=== PATIENT | female | born 1945 | race Caucasian/White ===

== ENCOUNTER 2021-04-16 18:14 | Emergency (ER) | payer OTHER ==
[2021-04-16 18:31] VITALS: BP 116/78; PULSE 79; TEMP 98; BMI 38.9
[2021-04-16] MEDS ORDERED: DIPHTH,PERTUSS(ACELL),TET 0.5 ML DISP.SYRIN IM ONE ×2 (18:51→18:54)
== END 2021-04-16 18:57 | disposition home or self-care (01) ==
LOC: JERFT 18:14
PROC: 3E0234Z Introduction of Serum, Toxoid and Vaccine into Muscle, Percutaneous Approach (ICD-10-PCS; principal; 2021-04-16)
DX: S91.115A Laceration without foreign body of left lesser toe(s) without damage to nail, initial encounter (principal); W26.8XXA Contact with other sharp object(s), not elsewhere classified, initial encounter; Y93.E8 Activity, other personal hygiene
CPT/HCPCS: 90471; 90715; 99284-25

== ENCOUNTER 2022-04-14 10:14 | Inpatient (IN) | payer OTHER ==
[2022-04-14 12:48] LABS: BASO % 0.5 % (0-2.0); EOS % 6.3 % (0-4.5); HEMATOCRIT 39.2 % (32.4-45.2); HEMOGLOBIN 13.2 GM/dL (10.7-15.3); LYMPH % 29.1 % (8-40); MCH 31.3 pg (25.7-33.7); MCHC 33.7 g/dl (32.0-36.0); MEAN CELL VOLUME 92.9 fl (80-96); MEAN PLT VOLUME 8.9 fl (7.5-11.1); MONO % 7.6 % (3.8-10.2); NEUT % 56.5 % (42.8-82.8); PLATELET COUNT 208 10^3/uL (134-434); RBC 4.22 M/mm3 (3.60-5.2); RDW 14.7 % (11.6-15.6)
[2022-04-14 12:56] LABS: INR 0.99 (0.83-1.09); PROTHROMBIN TIME (PATIENT) 11.4 SEC (9.7-13.0)
[2022-04-14 12:59] LABS: ACTIVATED PTT 29.7 SECONDS (25.2-36.5)
[2022-04-14 13:03] LABS: CALCIUM 9.5 mg/dL (8.5-10.1)
[2022-04-14 13:04] LABS: ALBUMIN 3.6 g/dl (3.4-5.0); BLOOD UREA NITROGEN 16.3 mg/dL (7-18)
[2022-04-14 13:07] LABS: CREATININE 1.1 mg/dL (0.55-1.3)
[2022-04-14 13:08] LABS: BILIRUBIN,TOTAL 0.5 mg/dL (0.2-1); TOT PROT 6.7 g/dl (6.4-8.2)
[2022-04-14 19:06] VITALS: BMI 41.2
[2022-04-15] MEDS: CARVEDILOL 12.5 MG TABLET (FP) PO SCH ×2 (10:07→21:23)
[2022-04-15 10:08] LABS: BASO % 0.4 % (0-2.0); HEMATOCRIT 40.4 % (32.4-45.2); HEMOGLOBIN 13.7 GM/dL (10.7-15.3); MCH 31.5 pg (25.7-33.7); MCHC 33.9 g/dl (32.0-36.0); MEAN CELL VOLUME 92.9 fl (80-96); MEAN PLT VOLUME 9.4 fl (7.5-11.1); MONO % 7.2 % (3.8-10.2); NEUT % 56.4 % (42.8-82.8); PLATELET COUNT 212 10^3/uL (134-434); RBC 4.34 M/mm3 (3.60-5.2); RDW 15.1 % (11.6-15.6); WHITE BLOOD COUNT 5.4 K/mm3 (4.0-10.0)
[2022-04-15] MEDS: VENLAFAXINE HCL 75 MG E.R. CAPSULES PO SCH (21:23)
[2022-04-15] MEDS: ATORVASTATIN CA 10 MG TABLET (FP) PO SCH (21:23)
[2022-04-15] MEDS: GABAPENTIN 300 MG CAPSULE PO SCH (21:23)
[2022-04-16] MEDS: CARVEDILOL 12.5 MG TABLET (FP) PO SCH ×2 (09:12→23:17)
[2022-04-16 09:14] LABS: HEMATOCRIT 41.4 % (32.4-45.2); HEMOGLOBIN 13.9 GM/dL (10.7-15.3); MCH 31.4 pg (25.7-33.7); MCHC 33.6 g/dl (32.0-36.0); MEAN CELL VOLUME 93.2 fl (80-96); MEAN PLT VOLUME 9.4 fl (7.5-11.1); PLATELET COUNT 217 10^3/uL (134-434); RBC 4.44 M/mm3 (3.60-5.2); RDW 14.7 % (11.6-15.6); WHITE BLOOD COUNT 5.6 K/mm3 (4.0-10.0)
[2022-04-16 09:40] LABS: CHOLESTEROL 167 mg/dL (50-200); LDL CHOLESTEROL (ONLY SJRH) 92 mg/dL (5-100); TRIGLYCERIDES 116 mg/dL (0-150)
[2022-04-16 09:44] LABS: HDL CHOLESTEROL 58 mg/dL (40-60)
[2022-04-16] MEDS: GABAPENTIN 300 MG CAPSULE PO SCH (23:17)
[2022-04-16] MEDS: ATORVASTATIN CA 10 MG TABLET (FP) PO SCH (23:17)
[2022-04-16] MEDS: VENLAFAXINE HCL 75 MG E.R. CAPSULES PO SCH (23:17)
[2022-04-17] MEDS: CARVEDILOL 12.5 MG TABLET (FP) PO SCH ×2 (09:38→22:17)
[2022-04-17 11:47] LABS: HEMATOCRIT 41.8 % (32.4-45.2); HEMOGLOBIN 14.1 GM/dL (10.7-15.3); MCH 31.5 pg (25.7-33.7); MCHC 33.6 g/dl (32.0-36.0); MEAN CELL VOLUME 93.8 fl (80-96); MEAN PLT VOLUME 9.6 fl (7.5-11.1); PLATELET COUNT 224 10^3/uL (134-434); RBC 4.46 M/mm3 (3.60-5.2); RDW 15.1 % (11.6-15.6); WHITE BLOOD COUNT 5.7 K/mm3 (4.0-10.0)
[2022-04-17 12:24] LABS: CALCIUM 9.7 mg/dL (8.5-10.1)
[2022-04-17 12:25] LABS: BLOOD UREA NITROGEN 7.6 mg/dL (7-18)
[2022-04-17 12:28] LABS: CREATININE 0.8 mg/dL (0.55-1.3)
[2022-04-17] MEDS: GABAPENTIN 300 MG CAPSULE PO SCH (22:17)
[2022-04-17] MEDS: ATORVASTATIN CA 10 MG TABLET (FP) PO SCH (22:17)
[2022-04-17] MEDS: VENLAFAXINE HCL 75 MG E.R. CAPSULES PO SCH (22:17)
[2022-04-18] MEDS: CARVEDILOL 12.5 MG TABLET (FP) PO SCH ×2 (09:59→21:39)
[2022-04-18] MEDS: POLYETHYLENE GLYCOL (HEALTHYLAX) 3350 17 GM PACKET PO SCH ×2 (15:19→21:40)
[2022-04-18] MEDS: VENLAFAXINE HCL 75 MG E.R. CAPSULES PO SCH (21:40)
[2022-04-18] MEDS: GABAPENTIN 300 MG CAPSULE PO SCH (21:40)
[2022-04-18] MEDS: ATORVASTATIN CA 10 MG TABLET (FP) PO SCH (21:40)
[2022-04-19] MEDS: POLYETHYLENE GLYCOL (HEALTHYLAX) 3350 17 GM PACKET PO SCH ×3 (07:10→22:44)
[2022-04-19] MEDS: CARVEDILOL 12.5 MG TABLET (FP) PO SCH ×2 (09:58→22:39)
[2022-04-19] MEDS ORDERED: BISACODYL 5 MG TABLET.DR (FP) PO ONE (16:00)
[2022-04-19] MEDS ORDERED: PEG 3350/NA SULF BICARB CL/KCL 4000 ML SOLN.RECON PO ONE (17:00)
[2022-04-19] MEDS: GABAPENTIN 300 MG CAPSULE PO SCH (22:39)
[2022-04-19] MEDS: ATORVASTATIN CA 10 MG TABLET (FP) PO SCH (22:39)
[2022-04-19] MEDS: VENLAFAXINE HCL 75 MG E.R. CAPSULES PO SCH (22:39)
[2022-04-20] MEDS: POLYETHYLENE GLYCOL (HEALTHYLAX) 3350 17 GM PACKET PO SCH ×2 (05:44→14:05)
[2022-04-20] MEDS: CARVEDILOL 12.5 MG TABLET (FP) PO SCH (09:01)
[2022-04-20 13:00] LABS: BASO % 0.5 % (0-2.0); EOS % 2.6 % (0-4.5); HEMATOCRIT 37.4 % (32.4-45.2); LYMPH % 23.4 % (8-40); MCH 32.3 pg (25.7-33.7); MCHC 34.7 g/dl (32.0-36.0); MEAN CELL VOLUME 93.2 fl (80-96); MONO % 10.2 % (3.8-10.2); NEUT % 63.3 % (42.8-82.8); PLATELET COUNT 192 10^3/uL (134-434); RBC 4.01 M/mm3 (3.60-5.2); RDW 14.5 % (11.6-15.6); WHITE BLOOD COUNT 6.3 K/mm3 (4.0-10.0)
[2022-04-20 13:02] LABS: INR 1.06 (0.83-1.09); PROTHROMBIN TIME (PATIENT) 12.2 SEC (9.7-13.0)
[2022-04-20 13:25] LABS: CALCIUM 9.2 mg/dL (8.5-10.1)
[2022-04-20 13:26] LABS: BLOOD UREA NITROGEN 13.7 mg/dL (7-18); MAGNESIUM 1.9 mg/dL (1.8-2.4)
[2022-04-20 13:29] LABS: CREATININE 0.9 mg/dL (0.55-1.3); PHOSPHOROUS 3.4 mg/dL (2.5-4.9)
[2022-04-20 16:00] VITALS: BP 125/64; PULSE 88; RESP 18; TEMP 98
== END 2022-04-20 17:08 | disposition home or self-care (01) | DRG 394 ==
LOC: JER 10:14 → JERBED 13:10 → J8W 19:05
PROVIDERS: ADMIT Family Medicine; ATTEND Family Medicine
PROC: 0DJD8ZZ Inspection of Lower Intestinal Tract, Via Natural or Artificial Opening Endoscopic (ICD-10-PCS; principal; 2022-04-20 12:45)
DX: K64.0 First degree hemorrhoids (principal); K62.5 Hemorrhage of anus and rectum; I25.10 Atherosclerotic heart disease of native coronary artery without angina pectoris; F32.A Depression, unspecified; I10 Essential (primary) hypertension; K57.30 Diverticulosis of large intestine without perforation or abscess without bleeding
CPT/HCPCS: 36415; 71045-TC-FY; 80048; 80053; 80061; 82272; 82962; 83735; 84100; 85025; 85027; 85610; 85730; 86850; 86900; 86901; 93005; 93010; 93306-TC; 99285-25; C9803-CS; U0003; U0005

== ENCOUNTER 2022-10-05 20:36 | Inpatient (IN) | payer OTHER ==
[2022-10-05] MEDS ORDERED: MAGNESIUM SULFATE IN WATER 2 GM/50 ML IVPB IVPB ONE (20:39)
[2022-10-05] MEDS ORDERED: RACEPINEPHRINE IH SOL 2.25% 11.25 MG/0.5 ML VIAL NEB ONE (20:39)
[2022-10-05] MEDS ORDERED: NITROGLYCERIN SUBLINGUAL 1/150 0.4 MG TAB SL ONE ×2 (20:40→20:50)
[2022-10-05] MEDS ORDERED: ASPIRIN 81 MG CHEWABLE TABLETS PO ONE (20:45)
[2022-10-05] MEDS ORDERED: fentaNYL CITRATE 250 MCG/5 ML VIAL ONE (20:48)
[2022-10-05] MEDS ORDERED: MIDAZOLAM IN 0.9 % SOD.CHLORID 1 MG/1 ML PLAST..BAG ONE (20:48)
[2022-10-05 20:51] LABS: VENOUS BASE EXCESS -5.2 mmol/L (-2-2); VENOUS O2 SATURATION 82.4 % (70-80)
[2022-10-05 21:00] LABS: VENOUS PH 7.003 (7.310-7.410)
[2022-10-05 21:01] LABS: VENOUS PCO2 124.6 mmHg (38-52)
[2022-10-05] MEDS ORDERED: DEXAMETHASONE SOD PHOSPHATE 10 MG/1 ML VIAL IVPUSH ONE (21:05)
[2022-10-05 21:11] LABS: CALCIUM 9.5 mg/dL (8.5-10.1)
[2022-10-05 21:13] LABS: BLOOD UREA NITROGEN 15.5 mg/dL (7-18)
[2022-10-05 21:15] LABS: CREATININE 1.1 mg/dL (0.55-1.3)
[2022-10-05 21:18] LABS: TOT PROT 7.7 g/dl (6.4-8.2)
[2022-10-05] MEDS ORDERED: MAGNESIUM SULF 50% (8.12 MEQ/2 ML-1 GM VIAL) IVPB ONE (21:27)
[2022-10-05] MEDS ORDERED: ETOMIDATE 40 MG/20 ML VIAL IVPUSH ONE (21:27)
[2022-10-05] MEDS ORDERED: RACEPINEPHRINE IH SOL 2.25% 11.25 MG/0.5 ML VIAL IH ONE (21:27)
[2022-10-05] MEDS ORDERED: ROCURONIUM BROMIDE 50 MG/5 ML VIAL IV ONE (21:27)
[2022-10-05] MEDS: FENTANYL NS IVPB 500 MCG/100 ML BAG IVPB SCH (21:30)
[2022-10-05] MEDS: ALBUTEROL SO4 2.5/IPRATROPIUM 0.5 INH SOL 3 ML VIAL.NEB. NEB SCH ×2 (21:30→21:31)
[2022-10-05] MEDS ORDERED: MIDAZOLAM 100 MG in SODIUM CHLORIDE 100 ML IVPB SCH (21:30)
[2022-10-05 21:41] LABS: ARTERIAL BLD GAS O2 SATURATION 99.3 % (95-98); ARTERIAL BLOOD GAS BASE EXCESS -5.1 mmol/L (-2-2); ARTERIAL BLOOD GAS PO2 246.6 mmHg (80-100)
[2022-10-05 21:44] LABS: ALLENS TEST POSITIVE
[2022-10-05 21:50] LABS: VENT MODE A/C; VENT RATE 16
[2022-10-05 21:53] LABS: ARTERIAL BLOOD GAS pH 7.156 (7.350-7.450)
[2022-10-05] MEDS ORDERED: SODIUM CHLORIDE 0.9% 500 ML INFUS.BAG IV ONE (22:03)
[2022-10-05] MEDS ORDERED: ROCURONIUM BROMIDE 50 MG/5 ML VIAL IVPUSH ONE (22:04)
[2022-10-05] MEDS ORDERED: ROCURONIUM BROMIDE 50 MG/5 ML SYRINGE ONE (22:11)
[2022-10-05] MEDS ORDERED: DOXYCYCLINE INJECTION 100 MG in DEXTROSE 5%-WATER 100 ML IVPB ONE (22:36)
[2022-10-05] MEDS ORDERED: ACETAMINOPHEN 325 MG TABLET (FP) NR PRN (22:39)
[2022-10-05] MEDS ORDERED: MUPIROCIN 2% TOPICAL OINTMENT FOR DECOLONIZATION NS SCH (22:45)
[2022-10-05] MEDS ORDERED: ALBUTEROL SO4 0.083% IH SOL 2.5 MG/3 ML VIAL.NEB. NEB PRN (22:58)
[2022-10-05] MEDS ORDERED: ACETAMINOPHEN 650 MG/20.3 ML ORAL SOLUTION (CUPS) GT PRN (23:07)
[2022-10-05] MEDS ORDERED: DOXYCYCLINE HYCLATE 100 MG VIAL ONE (23:19)
[2022-10-05] MEDS ORDERED: NOREPINEPHRINE BITARTRATE/D5W 8 MG/250 ML BAG IVPB ONE (23:21)
[2022-10-05] MEDS ORDERED: ATORVASTATIN CA 40 MG TABLET (FP) ONE (23:22)
[2022-10-05] MEDS ORDERED: CEFTRIAXONE 1 GM/50 ML BAG ONE (23:22)
[2022-10-05] MEDS: CEFTRIAXONE 1 GM in DEXTROSE 5%-WATER - 50 ML IVPB SCH (23:25)
[2022-10-05 23:36] LABS: BASO % 0.3 % (0-2.0); EOS % 1.2 % (0-4.5); HEMATOCRIT 39.1 % (32.4-45.2); HEMOGLOBIN 12.7 GM/dL (10.7-15.3); LYMPH % 8.1 % (8-40); MCH 30.5 pg (25.7-33.7); MCHC 32.5 g/dl (32.0-36.0); MEAN CELL VOLUME 94.1 fl (80-96); MEAN PLT VOLUME 9.2 fl (7.5-11.1); NEUT % 87.4 % (42.8-82.8); PLATELET COUNT 189 10^3/uL (134-434); RBC 4.16 M/mm3 (3.60-5.2); RDW 15.4 % (11.6-15.6); WHITE BLOOD COUNT 9.8 K/mm3 (4.0-10.0)
[2022-10-05 23:37] LABS: INR 1.1 (0.83-1.09); PROTHROMBIN TIME (PATIENT) 12.7 SEC (9.7-13.0)
[2022-10-05 23:39] LABS: EPI CELLS >36 /uL (0-25.1); HYALINE CASTS 22 /uL (0-3.1); URINE APPEARANCE CLOUDY; URINE BACTERIA 56 /uL (0-1359); URINE BILIRUBIN NEGATIVE (NEGATIVE); URINE COLOR YELLOW; URINE GLUCOSE (UA) NEGATIVE (NEGATIVE); URINE KETONE 2+ (NEGATIVE); URINE LEUK ESTERASE NEGATIVE (NEGATIVE); URINE NITRITE NEGATIVE (NEGATIVE); URINE PROTEIN 3+ (NEGATIVE); URINE RBC 45 /uL (0-23.9)
[2022-10-05 23:40] LABS: ACTIVATED PTT 30.3 SECONDS (25.2-36.5)
[2022-10-05 23:49] LABS: CALCIUM 8.8 mg/dL (8.5-10.1)
[2022-10-05 23:50] LABS: ALBUMIN 3.2 g/dl (3.4-5.0); BLOOD UREA NITROGEN 16.1 mg/dL (7-18); MAGNESIUM 2.3 mg/dL (1.8-2.4)
[2022-10-05 23:54] LABS: BILIRUBIN,TOTAL 0.7 mg/dL (0.2-1); CREATININE 0.9 mg/dL (0.55-1.3); TOT PROT 6.3 g/dl (6.4-8.2)
[2022-10-05 23:55] LABS: N-TERMINAL BNP 1559.9 pg/ml (5-450)
[2022-10-06] MEDS: NOREPINEPHRINE 0.9 % NACL 8 MG/250 ML BAG IVPB SCH (00:31)
[2022-10-06] MEDS ORDERED: NOREPINEPHRINE BITARTRATE 4 MG/4 ML ML IV ONE (02:26)
[2022-10-06] MEDS ORDERED: NOREPINEPHRINE BITARTRATE/D5W 8 MG/250 ML BAG IVPB SCH (02:30)
[2022-10-06] MEDS: MUPIROCIN 2% TOPICAL OINTMENT FOR DECOLONIZATION NS SCH ×3 (02:42→21:36)
[2022-10-06] MEDS: NOREPINEPHRINE BITARTRATE 16,000 MCG in SODIUM CHLORIDE 484 ML IV SCH (03:20)
[2022-10-06] MEDS ORDERED: FUROSEMIDE 40 MG/4 ML INJECTABLE VIAL IVPUSH ONE (03:38)
[2022-10-06 04:21] LABS: ARTERIAL BLD GAS O2 SATURATION 96.6 % (95-98); ARTERIAL BLOOD GAS BASE EXCESS -0.9 mmol/L (-2-2); ARTERIAL BLOOD GAS PO2 88.3 mmHg (80-100); ARTERIAL BLOOD GAS pH 7.383 (7.350-7.450)
[2022-10-06 04:28] LABS: ALLENS TEST POSITIVE
[2022-10-06 04:29] LABS: VENT MODE A/C; VENT RATE 18
[2022-10-06 07:23] LABS: BASO % 0.1 % (0-2.0); HEMATOCRIT 41.5 % (32.4-45.2); HEMOGLOBIN 13.7 GM/dL (10.7-15.3); LYMPH % 8.5 % (8-40); MCH 30.9 pg (25.7-33.7); MCHC 33.1 g/dl (32.0-36.0); MEAN CELL VOLUME 93.6 fl (80-96); MEAN PLT VOLUME 9.1 fl (7.5-11.1); MONO % 1.9 % (3.8-10.2); NEUT % 89.5 % (42.8-82.8); PLATELET COUNT 227 10^3/uL (134-434); RBC 4.43 M/mm3 (3.60-5.2); RDW 14.9 % (11.6-15.6); WHITE BLOOD COUNT 8.9 K/mm3 (4.0-10.0)
[2022-10-06 07:30] LABS: INR 1.02 (0.83-1.09); PROTHROMBIN TIME (PATIENT) 11.7 SEC (9.7-13.0)
[2022-10-06 07:32] LABS: ACTIVATED PTT 30.2 SECONDS (25.2-36.5)
[2022-10-06 07:38] LABS: CHLORIDE 101 mmol/L (98-107); SODIUM 140 mmol/L (136-145)
[2022-10-06 07:40] LABS: ALBUMIN 3.4 g/dl (3.4-5.0); ANION GAP 12 MMOL/L (8-16); BLOOD UREA NITROGEN 16.6 mg/dL (7-18); CALCIUM 9.2 mg/dL (8.5-10.1); CO2 27 mmol/L (21-32); GLUCOSE,RANDOM 149 mg/dL (74-106)
[2022-10-06 07:42] LABS: CREATININE 0.9 mg/dL (0.55-1.3); PHOSPHOROUS 2.9 mg/dL (2.5-4.9); SGOT/AST 25 U/L (15-37); SGPT/ALT 26 U/L (13-61)
[2022-10-06 07:45] LABS: BILIRUBIN,TOTAL 0.6 mg/dL (0.2-1); TOT PROT 6.9 g/dl (6.4-8.2)
[2022-10-06 07:46] LABS: ALK PHOS 80 U/L (45-117)
[2022-10-06] MEDS: FENTANYL NS IVPB 500 MCG/100 ML BAG IVPB SCH (09:53)
[2022-10-06] MEDS: CEFTRIAXONE 1 GM in DEXTROSE 5%-WATER - 50 ML IVPB SCH (09:57)
[2022-10-06] MEDS: AZITHROMYCIN IVPB 500 MG/250 ML BAG IVPB SCH (09:57)
[2022-10-06] MEDS: PANTOPRAZOLE SODIUM 40 MG VIAL IVPUSH SCH (09:57)
[2022-10-06] MEDS: ASPIRIN 81 MG CHEWABLE TABLETS GT SCH (09:59)
[2022-10-06] MEDS: ENOXAPARIN NA (PORCINE) 40 MG/0.4 ML DISP.SYRIN SQ SCH (10:00)
[2022-10-06] MEDS: POLYETHYLENE GLYCOL (HEALTHYLAX) 3350 17 GM PACKET GT SCH ×2 (10:00→21:38)
[2022-10-06] MEDS ORDERED: CEFTRIAXONE 1 GM in DEXTROSE 5%-WATER - 50 ML IVPB SCH (10:00)
[2022-10-06] MEDS: IPRATROPIUM BR 0.02% 0.5 MG/2.5 ML VIAL.NEB. NEB PRN (20:36)
[2022-10-06] MEDS: ATORVASTATIN CA 40 MG TABLET (FP) NGT SCH (21:38)
[2022-10-06] MEDS ORDERED: CHLORHEXIDINE GLUCONATE 4% CLEANSER FOR DECOLONIZATION TP SCH ×2 (22:00)
[2022-10-07] MEDS: PANTOPRAZOLE SODIUM 40 MG VIAL IVPUSH SCH (09:17)
[2022-10-07] MEDS: POLYETHYLENE GLYCOL (HEALTHYLAX) 3350 17 GM PACKET GT SCH ×2 (09:17→21:31)
[2022-10-07] MEDS: ENOXAPARIN NA (PORCINE) 40 MG/0.4 ML DISP.SYRIN SQ SCH (09:17)
[2022-10-07] MEDS: CEFTRIAXONE 1 GM in DEXTROSE 5%-WATER - 50 ML IVPB SCH (09:18)
[2022-10-07] MEDS: ASPIRIN 81 MG CHEWABLE TABLETS GT SCH (09:18)
[2022-10-07] MEDS: NOREPINEPHRINE BITARTRATE 16,000 MCG in SODIUM CHLORIDE 484 ML IV SCH (09:19)
[2022-10-07] MEDS: AZITHROMYCIN IVPB 500 MG/250 ML BAG IVPB SCH (09:21)
[2022-10-07] MEDS: MUPIROCIN 2% TOPICAL OINTMENT FOR DECOLONIZATION NS SCH (09:21)
[2022-10-07] MEDS: NOREPINEPHRINE 0.9 % NACL 8 MG/250 ML BAG IVPB SCH (09:21)
[2022-10-07] MEDS: IPRATROPIUM BR 0.02% 0.5 MG/2.5 ML VIAL.NEB. NEB PRN (21:18)
[2022-10-07] MEDS: ATORVASTATIN CA 40 MG TABLET (FP) NGT SCH (21:31)
[2022-10-08] MEDS: NOREPINEPHRINE BITARTRATE 16,000 MCG in SODIUM CHLORIDE 484 ML IV SCH (07:13)
[2022-10-08 08:07] LABS: BLOOD UREA NITROGEN 23.9 mg/dL (7-18); CALCIUM 9.3 mg/dL (8.5-10.1); MAGNESIUM 2.2 mg/dL (1.8-2.4)
[2022-10-08 08:10] LABS: CREATININE 0.8 mg/dL (0.55-1.3)
[2022-10-08 08:11] LABS: PHOSPHOROUS 2.6 mg/dL (2.5-4.9)
[2022-10-08 08:15] LABS: N-TERMINAL BNP 337.4 pg/ml (5-450)
[2022-10-08] MEDS: CEFTRIAXONE 1 GM in DEXTROSE 5%-WATER - 50 ML IVPB SCH (09:06)
[2022-10-08] MEDS: AZITHROMYCIN IVPB 500 MG/250 ML BAG IVPB SCH (09:07)
[2022-10-08] MEDS: ENOXAPARIN NA (PORCINE) 40 MG/0.4 ML DISP.SYRIN SQ SCH (09:07)
[2022-10-08] MEDS: ASPIRIN 81 MG CHEWABLE TABLETS GT SCH (09:07)
[2022-10-08] MEDS: POLYETHYLENE GLYCOL (HEALTHYLAX) 3350 17 GM PACKET GT SCH (09:08)
[2022-10-08] MEDS ORDERED: PANTOPRAZOLE SODIUM 40 MG VIAL IVPUSH SCH (10:00)
[2022-10-08] MEDS ORDERED: ACETAMINOPHEN 650 MG/20.3 ML ORAL SOLUTION (CUPS) PO PRN (11:44)
[2022-10-08] MEDS ORDERED: ASPIRIN 81 MG CHEWABLE TABLETS PO SCH (11:48)
[2022-10-08] MEDS: LACTOBACILLUS ACIDOPHILUS 1 TABLET PO SCH (13:10)
[2022-10-08] MEDS: VENLAFAXINE HCL 75 MG E.R. CAPSULES PO SCH (13:10)
[2022-10-08] MEDS ORDERED: METOPROLOL TARTRATE 5 MG/5 ML VIAL IVPUSH ONE ×2 (14:12→15:09)
[2022-10-08] MEDS ORDERED: CARVEDILOL 12.5 MG TABLET (FP) PO ONE (14:16)
[2022-10-08] MEDS: ASPIRIN 81 MG CHEWABLE TABLETS PO SCH (14:30)
[2022-10-08] MEDS ORDERED: LOPERAMIDE HCL 2 MG CAPSULE PO ONE (15:07)
[2022-10-08] MEDS: NYSTATIN 500,000 UNITS/5 ML SUSPENSION PO SCH ×2 (17:48→23:11)
[2022-10-08] MEDS: POLYETHYLENE GLYCOL (HEALTHYLAX) 3350 17 GM PACKET PO SCH (21:08)
[2022-10-08] MEDS: CARVEDILOL 12.5 MG TABLET (FP) PO SCH (21:08)
[2022-10-08] MEDS: ATORVASTATIN CA 40 MG TABLET (FP) PO SCH (21:09)
[2022-10-08] MEDS: GABAPENTIN 300 MG CAPSULE PO SCH (21:09)
[2022-10-08] MEDS ORDERED: ALBUTEROL SO4 0.083% IH SOL 2.5 MG/3 ML VIAL.NEB. NEB PRN (21:52)
[2022-10-08] MEDS ORDERED: IPRATROPIUM BR 0.02% 0.5 MG/2.5 ML VIAL.NEB. NEB PRN (21:52)
[2022-10-08] MEDS ORDERED: VENLAFAXINE HCL 75 MG E.R. CAPSULES PO SCH (22:00)
[2022-10-08] MEDS ORDERED: PATIENT'S OWN MEDICATION (NON-FORMULARY) (Pravastatin Sodium 40 MG Tablet) PO SCH (22:00)
[2022-10-09] MEDS: NYSTATIN 500,000 UNITS/5 ML SUSPENSION PO SCH ×3 (06:25→18:05)
[2022-10-09 10:58] LABS: HEMATOCRIT 40.6 % (32.4-45.2); HEMOGLOBIN 13.6 GM/dL (10.7-15.3); MCH 31.2 pg (25.7-33.7); MCHC 33.6 g/dl (32.0-36.0); MEAN CELL VOLUME 92.9 fl (80-96); MEAN PLT VOLUME 8.6 fl (7.5-11.1); PLATELET COUNT 196 10^3/uL (134-434); RBC 4.37 M/mm3 (3.60-5.2); RDW 15.6 % (11.6-15.6); WHITE BLOOD COUNT 7.4 K/mm3 (4.0-10.0)
[2022-10-09] MEDS: LACTOBACILLUS ACIDOPHILUS 1 TABLET PO SCH (11:06)
[2022-10-09] MEDS: VENLAFAXINE HCL 75 MG E.R. CAPSULES PO SCH (11:06)
[2022-10-09] MEDS: POLYETHYLENE GLYCOL (HEALTHYLAX) 3350 17 GM PACKET PO SCH ×3 (11:07→21:19)
[2022-10-09] MEDS: PANTOPRAZOLE SODIUM 40 MG VIAL IVPUSH SCH (11:07)
[2022-10-09] MEDS: CARVEDILOL 12.5 MG TABLET (FP) PO SCH ×2 (11:07→21:15)
[2022-10-09] MEDS: ENOXAPARIN NA (PORCINE) 40 MG/0.4 ML DISP.SYRIN SQ SCH (11:07)
[2022-10-09] MEDS: ASPIRIN 81 MG CHEWABLE TABLETS PO SCH (11:07)
[2022-10-09 11:24] LABS: BLOOD UREA NITROGEN 18.5 mg/dL (7-18); CALCIUM 9.4 mg/dL (8.5-10.1); MAGNESIUM 2.1 mg/dL (1.8-2.4)
[2022-10-09 11:27] LABS: CREATININE 0.9 mg/dL (0.55-1.3); PHOSPHOROUS 3.5 mg/dL (2.5-4.9)
[2022-10-09] MEDS: CEFTRIAXONE 1 GM in DEXTROSE 5%-WATER - 50 ML IVPB SCH (11:27)
[2022-10-09] MEDS: AZITHROMYCIN IVPB 500 MG/250 ML BAG IVPB SCH (13:23)
[2022-10-09] MEDS: ATORVASTATIN CA 40 MG TABLET (FP) PO SCH (21:15)
[2022-10-09] MEDS: GABAPENTIN 300 MG CAPSULE PO SCH (21:15)
[2022-10-10] MEDS: NYSTATIN 500,000 UNITS/5 ML SUSPENSION PO SCH ×4 (01:02→19:03)
[2022-10-10] MEDS: ENOXAPARIN NA (PORCINE) 40 MG/0.4 ML DISP.SYRIN SQ SCH (10:22)
[2022-10-10] MEDS: PANTOPRAZOLE SODIUM 40 MG VIAL IVPUSH SCH (10:22)
[2022-10-10] MEDS: CARVEDILOL 12.5 MG TABLET (FP) PO SCH ×2 (10:22→22:03)
[2022-10-10] MEDS: LACTOBACILLUS ACIDOPHILUS 1 TABLET PO SCH (10:22)
[2022-10-10] MEDS: CEFTRIAXONE 1 GM in DEXTROSE 5%-WATER - 50 ML IVPB SCH (10:22)
[2022-10-10] MEDS: ASPIRIN 81 MG CHEWABLE TABLETS PO SCH (10:22)
[2022-10-10] MEDS: POLYETHYLENE GLYCOL (HEALTHYLAX) 3350 17 GM PACKET PO SCH ×2 (10:22→21:34)
[2022-10-10] MEDS: AZITHROMYCIN IVPB 500 MG/250 ML BAG IVPB SCH (10:23)
[2022-10-10] MEDS: VENLAFAXINE HCL 75 MG E.R. CAPSULES PO SCH ×2 (10:23→14:33)
[2022-10-10 14:19] VITALS: BMI 39.9
[2022-10-10] MEDS: GABAPENTIN 300 MG CAPSULE PO SCH (22:02)
[2022-10-10] MEDS: ATORVASTATIN CA 40 MG TABLET (FP) PO SCH (22:03)
[2022-10-11] MEDS: NYSTATIN 500,000 UNITS/5 ML SUSPENSION PO SCH ×4 (00:53→18:11)
[2022-10-11] MEDS: ENOXAPARIN NA (PORCINE) 40 MG/0.4 ML DISP.SYRIN SQ SCH (10:25)
[2022-10-11] MEDS: LACTOBACILLUS ACIDOPHILUS 1 TABLET PO SCH (10:26)
[2022-10-11] MEDS: ASPIRIN 81 MG CHEWABLE TABLETS PO SCH (10:26)
[2022-10-11] MEDS: CARVEDILOL 12.5 MG TABLET (FP) PO SCH ×2 (10:26→21:30)
[2022-10-11] MEDS: CEFTRIAXONE 1 GM in DEXTROSE 5%-WATER - 50 ML IVPB SCH (10:26)
[2022-10-11] MEDS: PANTOPRAZOLE SODIUM 40 MG VIAL IVPUSH SCH (10:27)
[2022-10-11] MEDS: AZITHROMYCIN IVPB 500 MG/250 ML BAG IVPB SCH (10:27)
[2022-10-11] MEDS: POLYETHYLENE GLYCOL (HEALTHYLAX) 3350 17 GM PACKET PO SCH ×2 (10:27→21:37)
[2022-10-11] MEDS: VENLAFAXINE HCL 75 MG E.R. CAPSULES PO SCH (10:27)
[2022-10-11 10:28] LABS: HEMATOCRIT 39.8 % (32.4-45.2); HEMOGLOBIN 13.2 GM/dL (10.7-15.3); MCHC 33.3 g/dl (32.0-36.0); MEAN CELL VOLUME 93.2 fl (80-96); MEAN PLT VOLUME 8.9 fl (7.5-11.1); PLATELET COUNT 226 10^3/uL (134-434); RBC 4.27 M/mm3 (3.60-5.2)
[2022-10-11 11:05] LABS: ALBUMIN 3.3 g/dl (3.4-5.0); BLOOD UREA NITROGEN 18.9 mg/dL (7-18); CALCIUM 9.3 mg/dL (8.5-10.1); MAGNESIUM 2.1 mg/dL (1.8-2.4)
[2022-10-11 11:10] LABS: BILIRUBIN,TOTAL 0.6 mg/dL (0.2-1); TOT PROT 6.9 g/dl (6.4-8.2)
[2022-10-11] MEDS: CEFPODOXIME PROXETIL 100 MG TABLET PO SCH ×2 (16:33→21:31)
[2022-10-11] MEDS: ATORVASTATIN CA 40 MG TABLET (FP) PO SCH (21:30)
[2022-10-11] MEDS: GABAPENTIN 300 MG CAPSULE PO SCH (21:30)
[2022-10-12] MEDS: NYSTATIN 500,000 UNITS/5 ML SUSPENSION PO SCH ×3 (00:01→12:45)
[2022-10-12] MEDS: POLYETHYLENE GLYCOL (HEALTHYLAX) 3350 17 GM PACKET PO SCH (09:55)
[2022-10-12] MEDS: ENOXAPARIN NA (PORCINE) 40 MG/0.4 ML DISP.SYRIN SQ SCH (09:55)
[2022-10-12] MEDS: CARVEDILOL 12.5 MG TABLET (FP) PO SCH (09:56)
[2022-10-12] MEDS: ASPIRIN 81 MG CHEWABLE TABLETS PO SCH (09:56)
[2022-10-12] MEDS: VENLAFAXINE HCL 75 MG E.R. CAPSULES PO SCH (09:56)
[2022-10-12] MEDS: LACTOBACILLUS ACIDOPHILUS 1 TABLET PO SCH (09:56)
[2022-10-12 15:27] VITALS: RESP 20
[2022-10-12 15:28] VITALS: BP 147/80; PULSE 92; TEMP 97.3
== END 2022-10-12 17:35 | disposition home health service (06) | DRG 871 ==
LOC: JER 20:36 → JERBED 21:15 → JICU 10-06 01:53 → J5S 10-08 21:24
PROVIDERS: ADMIT Internal Medicine Pulmonary Disease; ATTEND Internal Medicine
PROC: 5A1935Z Respiratory Ventilation, Less than 24 Consecutive Hours (ICD-10-PCS; principal; 2022-10-05)
PROC: 0BH17EZ Insertion of Endotracheal Airway into Trachea, Via Natural or Artificial Opening (ICD-10-PCS; 2022-10-05)
PROC: 02HV33Z Insertion of Infusion Device into Superior Vena Cava, Percutaneous Approach (ICD-10-PCS; 2022-10-06)
PROC: B548ZZA Ultrasonography of Superior Vena Cava, Guidance (ICD-10-PCS; 2022-10-06)
PROC: 03HY32Z Insertion of Monitoring Device into Upper Artery, Percutaneous Approach (ICD-10-PCS; 2022-10-06)
PROC: 4A133B1 Monitoring of Arterial Pressure, Peripheral, Percutaneous Approach (ICD-10-PCS; 2022-10-06)
PROC: 4A133J1 Monitoring of Arterial Pulse, Peripheral, Percutaneous Approach (ICD-10-PCS; 2022-10-06)
DX: A41.9 Sepsis, unspecified organism (principal); J18.9 Pneumonia, unspecified organism; J96.01 Acute respiratory failure with hypoxia; J96.02 Acute respiratory failure with hypercapnia; R65.21 Severe sepsis with septic shock; I10 Essential (primary) hypertension; I11.0 Hypertensive heart disease with heart failure; I50.9 Heart failure, unspecified; E78.5 Hyperlipidemia, unspecified; I25.2 Old myocardial infarction; G47.33 Obstructive sleep apnea (adult) (pediatric); F41.9 Anxiety disorder, unspecified; I25.10 Atherosclerotic heart disease of native coronary artery without angina pectoris; E66.9 Obesity, unspecified; Z68.38 Body mass index [BMI] 38.0-38.9, adult
CPT/HCPCS: 0241U-QW; 36415; 36600; 70450-TC; 71045-TC-FY; 71250-TC; 80048; 80053; 80061; 81003; 82308; 82550; 82803; 82962; 83036; 83605; 83735; 83880; 84100; 84484; 85025; 85027; 85610; 85730; 86140; 86850; 86900; 86901; 87070; 87205; 93005; 93010; 94002; 94640; 94761; 97116-GP; 97161-GP; 99285-25; J1100